=== PATIENT | male | born 1940 | race Caucasian/White ===

== ENCOUNTER 2024-12-30 18:25 | Emergency (ER) | payer OTHER ==
[2024-12-30 19:24] LABS: Influenza A Ag Negative; Influenza B Ag Negative; SARS-CoV-2 Antigen Rapid Res Negative (Negative)
--- NOTE | 2024-12-30 19:48 | RAD REPORT ---
EXAMINATION: ONE VIEW CHEST XR CLINICAL INDICATION: COUGH TECHNIQUE: Frontal chest projection is submitted. Examination is limited by patient positioning and t echnique. COMPARISON: No prior exam. FINDINGS: [id number] patchy opacities in both lung bases likely infection/pneumonia. The heart is mildly prominent in size. No displaced fractures identified.
[2024-12-30] MEDS ORDERED: AZITHROMYCIN 500 MG INJ IVPB ONE (20:21)
[2024-12-30] MEDS ORDERED: NA CHLORIDE 0.9% 250 ML ONE (20:21)
[2024-12-30] MEDS ORDERED: CEFTRIAXONE 1000 MG/VIAL ONE (20:21)
[2024-12-30] MEDS ORDERED: ACETAMINOPHEN 500 MG TAB ONE (20:21)
[2024-12-30 21:39] LABS: PT Prothrombin Time 13.3 SECONDS (10-13.0); Protime INR 1.18
[2024-12-30 22:40] LABS: Absolute Basophils 0.1 K/uL (0-0.5); Absolute Lymphocytes (CBC) 0.4 K/uL (0.7-4.9); Absolute Monocytes 0.8 K/uL (0.1-1.3); Absolute Neutrophil 11.5 K/uL (1.8-8.0); Basophils % 0.8 % (0-1.3); Eosinophils % 0.1 % (0-4.4); Hematocrit 38.7 % (39.6-49.0); Hemoglobin 13.5 g/dL (13.6-17.9); Lymphocytes % 3.2 % (15.3-44.8); MCH 30.5 pg (27.0-35.0); MCHC 34.7 g/dL (32.0-36.0); MCV 87.8 fL (80-100); MPV 8.9 fL (7.6-11.3); Monocytes % 5.9 % (3.3-12.3); Nucleated Red Blood Cells % 0.1 % (0-0); Platelets 168 thou/uL (152-406); RBC Red Blood Cell Count 4.41 M/uL (4.33-5.43); Red Cell Distribution Width 13.4 % (12.1-15.2)
[2024-12-30 22:50] LABS: Anion Gap 9.6 mEq/L (5.0-15.0); Potassium 3.6 mEq/L (3.5-5.1)
--- NOTE | 2024-12-30 23:08 | ER ---
Nurse's Notes [facility] Name: Mariot Ly Age: 84 yrs Sex: Male : 1940 Arrival Date: 12/30/2024 Time: 18:25 Bed 19 Private MD: Diagnosis: Acute Bilateral Pneumonia Presentation: 12/30 18:34 Chief complaint: Patient states: Fever 102, dizzy, nausea, fatigue, body aches started ll1 today. Coronavirus screen: Client denies travel out of the [place] in the last 14 days. At this time, the client does not indicate any symptoms associated with coronavirus-19. Ebola Screen: Patient denies travel to an Ebola-affected area in the 21 days before illness onset. Initial Sepsis Screen: Does the patient meet any 2 criteria? No. Patient's initial sepsis screen is negative. Does the patient have a suspected source of infection? No. Patient's initial sepsis screen is negative. Risk Assessment: Do you want to hurt yourself or someone else? Patient reports no desire to harm self or others. Onset of symptoms was December 30, 2024. 18:34 Method Of Arrival: Ambulatory ll1 18:34 Acuity: BLAIR 3 ll1 Triage Assessment: 18:37 General: Appears uncomfortable, Behavior is calm, cooperative, appropriate for age, ll1 Reports fatigue for. Pain: Denies pain. Neuro: Reports dizziness, weakness. GI: Reports nausea. Historical: - Allergies: 18:33 Iodine; ll1 - PMHx: 18:33 Hypertensive disorder; ll1 - PSHx: 18:33 Cholecystectomy; bladder CA; ll1 - Immunization history:: Adult Immunizations up to date. - Infectious Disease History:: Denies. - Social history:: Smoking status: Patient denies any tobacco usage or history of. Screenin:15 [facility] ED Fall Risk Assessment (Adult) History of falling in the last 3 months, ay including since admission No falls in past 3 months (0 pts) Confusion or Disorientation No (0 pts) Intoxicated or Sedated No (0 pts) Impaired Gait No (0 pts) Mobility Assist Device Used No (0 pt) Altered Elimination No (0 pt) Score/Fall Risk Level 0 - 2 = Low Risk Oriented to surroundings, Maintained a safe environment, Educated pt \T\ family on fall prevention, incl call for assistance when getting out of bed. Abuse screen: Denies threats or abuse. Nutritional screening: No deficits noted. Tuberculosis screening: No symptoms or risk factors identified. Assessment: 19:15 General: Appears in no apparent distress. comfortable, Behavior is calm, cooperative. ay Pain: Denies pain. Neuro: Level of Consciousness is awake, alert, obeys commands, Oriented to person, place, time, situation, Speech is normal. Cardiovascular: Denies chest pain, nausea, vomiting, Rhythm is sinus rhythm. Respiratory: Airway is patent Respiratory effort is even, unlabored, Respiratory pattern is regular, symmetrical, Denies cough, shortness of breath. GI: Abdomen is obese, Patient currently denies abdominal pain. : No signs and/or symptoms were reported regarding the genitourinary system. EENT: No signs and/or symptoms were reported regarding the EENT system. Derm: No signs and/or symptoms reported regarding the dermatologic system. Vital Signs: 18:34 BP 137 / 69; Pulse 94; Resp 18; Temp 98.5; Pulse Ox 95% on R/A; Weight 86.18 kg; Height ll1 5 ft. 8 in. ; Pain 0/10; 19:23 BP 147 / 83; Pulse 99; Resp 16; Pulse Ox 97% on R/A; ay 21:00 BP 121 / 68; Pulse 67; Resp 17; Pulse Ox 97% on R/A; ay 22:00 BP 109 / 61; Pulse 65; Resp 19; Temp 98.1; Pulse Ox 97% ; ay 22:30 BP 123 / 59; Pulse 93; Resp 19; Pulse Ox 97% on R/A; ay 18:34 Body Mass Index 28.89 (86.18 kg, 172.72 cm) ll1 18:34 Pain Scale: Adult ll1 Kris Coma Score: 12/31 05:48 Eye Response: spontaneous(4). Motor Response: obeys commands(6). Verbal Response: sp4 oriented(5). Total: 15. ED Course: 12/30 18:26 Patient arrived in ED. im 18:30 Hany Orr MD is Attending Physician. ec2 18:33 Arm band placed on. ll1 18:37 Triage completed. ll1 18:52 COVID swab sent to lab. Flu and/or RSV swab sent to lab. ll1 19:15 Inserted saline lock: 20 gauge in right antecubital area, using aseptic technique. ay 19:43 CXR XRAY In Process Unspecified. EDMS 20:14 Sierra Ervin, RN is Primary Nurse. db 20:17 Attending Physician role handed off by Hany Orr MD sp4 20:17 Jamal Rosario MD is Attending Physician. sp4 21:07 Blood Culture Adult (2) Sent. ha1 21:07 Lactate w/ 2H reflex if indic. Sent. ha1 21:07 Protime (+inr) Sent. ha1 21:07 Ptt, Activated Sent. ha1 21:07 BMP Sent. ha1 21:07 CBC with Diff Sent. ha1 23:18 IV discontinued, intact, bleeding controlled, No redness/swelling at site. Pressure ay dressing applied. Administered Medications: 20:45 Drug: Acetaminophen PO 1000 mg PO once Route: PO; ay 21:22 Follow up: Response: No adverse reaction ay 23:20 Follow up: Response: No adverse reaction ay 20:45 Drug: Rocephin IV 1 grams IV at calculated rate once; Given slow IV push per pharmacy ay instructions Route: IV; Rate: calculated rate; Site: right antecubital; 21:22 Follow up: Response: No adverse reaction ay 23:19 Follow up: IV Status: Completed infusion ay 20:45 Drug: AZITHromycin IVPB 500 mg IVPB once over 1 hrs; (mix in 250 mL NS) Route: IVPB; ay Infused Over: 1 hrs; Site: right antecubital; 21:22 Follow up: Response: No adverse reaction ay 23:19 Follow up: IV Status: Completed infusion ay Outcome: 23:07 Discharge ordered by . sp4 23:18 Discharged to home ambulatory, with family, ay 23:18 Condition: stable 23:18 Discharge instructions given to patient, Instructed on discharge instructions, follow up and referral plans. Demonstrated understanding of instructions, follow-up care, medications, Prescriptions given X 4, 23:20 Patient left the ED. ay Signatures: Dispatcher [employer] EDMS Ralph Watts RN RN ll1 Isha Moreno RN RN 1 Sierra Ervin, Jamal Olivia RN, MD MD sp4 Jennifer Francis Hany Orr MD MD 2 Angel Humphrey, RN RN ay Corrections: (The following items were deleted from the chart) 18:34 18:33 PMHx: None; ll1 ll1
--- NOTE | 2024-12-30 23:08 | EDPHYS ---
Physician Documentation [facility] Name: Marito Ly Age: 84 yrs Sex: Male : 1940 Arrival Date: 12/30/2024 Time: 18:25 Bed 19 Private MD: ED Physician Jamal Rosario HPI: 12/30 19:00 This 84 yrs old Male presents to ER via Ambulatory with complaints of Fever, ec2 Dizziness. 19:00 Patient arrives today for evaluation of fever as well as headache and bodyaches along ec2 with lightheadedness. Patient reports he has been experiencing the symptoms since earlier today. Reports he took some NSAIDs with improvement in his fever. Historical: - Allergies: 18:33 Iodine; ll1 - PMHx: 18:33 Hypertensive disorder; ll1 - PSHx: 18:33 Cholecystectomy; bladder CA; ll1 - Immunization history:: Adult Immunizations up to date. - Infectious Disease History:: Denies. - Social history:: Smoking status: Patient denies any tobacco usage or history of. ROS: 19:00 Constitutional: as per hpi ec2 Exam: 19:00 Constitutional: GEN: NAD Head: atraumatic Eyes: EOMI Ears: External ears are ec2 normal. CV: regular rate LUNGS: no respiratory distress ABD: non-distended, soft, nontender, not guarding, not rigid SKIN: no evidence of rashes MSK: no evidence of trauma. Neuro: Cranial nerves II through XII intact, strength intact in all ext 12/31 05:48 Constitutional: This is a well developed, well nourished patient who is awake, alert, sp4 and in no acute distress. Head/Face: Normocephalic, atraumatic. Eyes: Pupils equal round and reactive to light, extra-ocular motions intact. Lids and lashes normal. Conjunctiva and sclera are not injected. Cornea within normal limits. Periorbital areas with no swelling, redness, or edema. ENT: Nares patent. No nasal discharge, no septal abnormalities noted. Tympanic membranes are normal and external auditory canals are clear. Oropharynx with no redness, swelling, or masses, exudates, or evidence of obstruction, uvula midline. Mucous membranes moist. Neck: Trachea midline, no thyromegaly or masses palpated, and no cervical lymphadenopathy. Supple, full range of motion without nuchal rigidity, or vertebral point tenderness. Chest/axilla: Normal chest wall appearance and motion. Nontender with no deformity. No lesions are appreciated. Cardiovascular: Regular rate and rhythm with a normal S1 and S2. No gallops, murmurs, or rubs. Normal PMI, no JVD. No pulse deficits. Respiratory: Lungs have equal breath sounds bilaterally, clear to auscultation and percussion. No rales, rhonchi or wheezes noted. No increased work of breathing, no retractions or nasal flaring. Abdomen/GI: Soft, with normal bowel sounds. No distension or tympany. No guarding or rebound. No evidence of tenderness throughout. Back: No spinal tenderness. No costovertebral tenderness. Skin: Warm, dry with normal turgor. Normal color with no rashes, no lesions, and no evidence of cellulitis. MS/ Extremity: Pulses equal, no cyanosis. Neurovascular intact. Full, normal range of motion. Neuro: Awake and alert, GCS 15, oriented to person, place, time, and situation. Cranial nerves II-XII grossly intact. Motor strength 5/5 in all extremities. Sensory grossly intact. Psych: Awake, alert, with orientation to person, place and time. Behavior, mood, and affect are within normal limits ECG was reviewed by the Attending Physician. EKG 2050 normal sinus rhythm rate 99 occasional unifocal PVCs. Vital Signs: 12/30 18:34 BP 137 / 69; Pulse 94; Resp 18; Temp 98.5; Pulse Ox 95% on R/A; Weight 86.18 kg; Height ll1 5 ft. 8 in. ; Pain 0/10; 19:23 BP 147 / 83; Pulse 99; Resp 16; Pulse Ox 97% on R/A; ay 21:00 BP 121 / 68; Pulse 67; Resp 17; Pulse Ox 97% on R/A; ay 22:00 BP 109 / 61; Pulse 65; Resp 19; Temp 98.1; Pulse Ox 97% ; ay 22:30 BP 123 / 59; Pulse 93; Resp 19; Pulse Ox 97% on R/A; ay 18:34 Body Mass Index 28.89 (86.18 kg, 172.72 cm) ll1 18:34 Pain Scale: Adult ll1 Kris Coma Score: 12/31 05:48 Eye Response: spontaneous(4). Motor Response: obeys commands(6). Verbal Response: sp4 oriented(5). Total: 15. MDM: 12/30 19:00 Data reviewed: vital signs, nurses notes. ED course: Patient arrives today for ec2 evaluation of fever. Examination is unrevealing. Will obtain lab work, chest x-ray. DDx include processes such as dehydration, viral infection. Additionally considered other process such as cellulitis, UTI however patient without symptoms consistent with this.. 19:06 Medical Screening Exam initiated ec2 20:12 ED course: Chest x-ray shows concern for pneumonia, will give the patient antibiotics ec2 for this.. 21:18 Differential diagnosis: viral Infection, bacterial infection, URI, bronchitis, sp4 pneumonia gastroenteritis. Data reviewed: lab test result(s), EKG, radiologic studies, plain films. Consideration of Admission/Observation Escalation of care including admission/observation considered. ED course: EXAMINATION: ONE VIEW CHEST XR CLINICAL INDICATION: COUGH TECHNIQUE: Frontal chest projection is submitted. Examination is limited by patient positioning and technique. COMPARISON: No prior exam. FINDINGS: [id number] patchy opacities in both lung bases likely infection/pneumonia. The heart is mildly prominent in size. No displaced fractures identified. . 12/30 18:49 Order name: CBC with Diff; Complete Time: 22:46 ec2 12/30 18:49 Order name: BMP; Complete Time: 23:00 ec2 12/30 18:49 Order name: COVID-19 Ag + Flu A+B Ag; Complete Time: 20:05 ec2 12/30 20:05 Order name: Blood Culture Adult (2) ec2 12/30 20:05 Order name: Lactate w/ 2H reflex if indic.; Complete Time: 21:56 ec2 12/30 20:05 Order name: Protime (+inr); Complete Time: 21:56 ec2 12/30 20:05 Order name: Ptt, Activated; Complete Time: 21:56 ec2 12/30 22:37 Order name: Glucose, Ancillary Testing; Complete Time: 22:46 EDMS 12/30 18:49 Order name: CXR XRAY; Complete Time: 20:05 ec2 12/30 20:05 Order name: EKG; Complete Time: 20:06 ec2 12/30 18:49 Order name: IV; Complete Time: : 12/30 20:05 Order name: Accucheck; Complete Time: : 12/30 20:05 Order name: Cardiac monitoring; Complete Time: : 12/30 20:05 Order name: EKG - Nurse/Tech; Complete Time: 21: 12/30 20:05 Order name: IV Saline Lock - Large Bore; Complete Time: : 12/30 20:05 Order name: Labs collected and sent; Complete Time: : 12/30 20:05 Order name: O2 Per Protocol; Complete Time: : 12/30 20:05 Order name: O2 Sat Monitoring; Complete Time: : 12/30 20:05 Order name: Vital Signs; Complete Time: : ec2 EC:51 Rate is 99 beats/min. Rhythm is regular, Normal Sinus Rhythm with Unifocal PVCs, sp4 Occasional PVCs. QRS [place] is Normal. SD interval is normal. QRS interval is normal. QT interval is normal. No Q waves. T waves are Normal. No ST changes noted. Interpreted by me. Reviewed by me. Administered Medications: 20:45 Drug: Acetaminophen PO 1000 mg PO once Route: PO; ay 21:22 Follow up: Response: No adverse reaction ay 23:20 Follow up: Response: No adverse reaction ay 20:45 Drug: Rocephin IV 1 grams IV at calculated rate once; Given slow IV push per pharmacy ay instructions Route: IV; Rate: calculated rate; Site: right antecubital; 21:22 Follow up: Response: No adverse reaction ay 23:19 Follow up: IV Status: Completed infusion ay 20:45 Drug: AZITHromycin IVPB 500 mg IVPB once over 1 hrs; (mix in 250 mL NS) Route: IVPB; ay Infused Over: 1 hrs; Site: right antecubital; 21:22 Follow up: Response: No adverse reaction ay 23:19 Follow up: IV Status: Completed infusion ay Disposition Summary: 12/30/24 23:07 Discharge Ordered Notes: Location: Home sp4 Problem: new sp4 Symptoms: have improved sp4 Condition: Stable sp4 Diagnosis - Acute Bilateral Pneumonia sp4 Followup: sp4 - With: Private Physician - When: 7 - 10 days - Reason: Recheck today's complaints Discharge Instructions: - Discharge Summary Sheet sp4 - Community-Acquired Pneumonia, Adult, [id number]-[facility]-[id number] sp4 Forms: - Patient Portal Instructions sp4 Prescriptions: - dextromethorphan-guaifenesin 20-400 mg Oral tablet - take 1 tablet ORAL route every 6 hours PRN cough; 60 tablet; Refills: 0, sp4 Product Selection Permitted - Ibuprofen 600 mg Oral Tablet - take 1 tablet ORAL route every 6 hours As needed take with food; 30 tablet; sp4 Refills: 0, Product Selection Permitted - Zithromax Z-Yovani 250 mg Oral Tablet - take 1 tablet ORAL route as directed for 5 days Day 1 - take two (2) tablets sp4 one time. Day 2, 3, 4 , 5 take one (1) tablet once daily.; 6 tablet; Refills: 0, Product Selection Permitted - promethazine 25 mg Oral tablet - take 1 tablet ORAL route every 6 hours As needed PRN nausea; 30 tablet; sp4 Refills: 0, Product Selection Permitted Signatures: Dispatcher [employer] Ralph Estrada, RN RN ll1 Jamal Rosario MD MD sp4 Hany Orr MD MD ec2 Angel Humphrey RN RN ay Corrections: (The following items were deleted from the chart) 18:34 18:33 PMHx: None; ll1 ll1 20:06 20:06 BLOOD CULTURE*+BA.LAB.BRZ ordered. EDMS EDMS 20:06 20:06 LACTATE+C.LAB.BRZ ordered. EDMS EDMS 20:06 20:06 PROTIME (+INR)+COAG.LAB.BRZ ordered. EDMS EDMS 20:06 20:06 PTT, ACTIVATED+COAG.LAB.BRZ ordered. EDMS EDMS
[2024-12-30 23:31] VITALS: O2SAT 97
[2024-12-30 23:34] VITALS: TEMP 98.1
[2024-12-30 23:35] VITALS: BP 123/59
== END 2024-12-30 23:20 | disposition home or self-care (01) ==
LOC: ER 18:25
DX: J18.9 Pneumonia, unspecified organism (principal); Z11.52 Encounter for screening for COVID-19
CPT/HCPCS: 96365; 96368; 87040 ×2; 85025; 80048; 36415; 85610; 82947; 83605; 85730; 71045; 99284; 96366; 87428; J7050; J0696; 93005